=== PATIENT | female | born 1960 | race African-American/Black ===

== ENCOUNTER 2016-03-07 14:46 | Emergency (ER) | payer BC, OTHER ==
[~2016-03-07] VITALS: Ht 162.6 cm; Wt 96.9 kg
--- NOTE | ~2016-03-07 | EKG ---
[address] [address] ELECTROCARDIOGRAM REPORT Name: JENNY BURNETTE [id number] Admission: 03/07/16 Attend Phys: Discharge: Date of : 62 Report #: [id number] THIS REPORT FOR: //name// [facility] ED Test Date: 2016-03-07 Test Time: 15:09:38 Pat Name: JENNY BURNETTE Department: Room: Gender: F Low Pressure Boiler Tender: MZOOK : 1960 Requested By: Singh Parham Order Number: [id number] MD: Derek Carmona Measurements Intervals [place] Rate: 81 P: 33 IN: 149 QRS: 34 QRSD: 80 T: 26 QT: 402 QTc: 467 Interpretive Statements Sinus rhythm Compared to ECG 12/29/2015 13:10:01 T-wave abnormality no longer present Electronically Signed On 03-07-2016 16:03:49 PLANT INSPECTOR by Derek Carmona [email or web address] <ELECTRONICALLY SIGNED> By: Derek Carmona MD 03/07/16 1603 1509 1509 Derek Carmona MD /SOFIE
[~2016-03-07 14:46] MED LIST: ACETAMINOPHEN325 M1 PO; APAP500 PO; ASPIR 8181 MG PO; B-12500 MCG PO; B12INJ IM; FISH OIL + D31 EACH PO; FLONASE 0.05%50 MCG NASAL; GLUCOSAMINE HC500 MG PO; GLUCOSAMINE1000 MG PO; HYDROCHLOROTHIA25 M2 PO; HYDROXYCHLOROQ200 M1 PO; LASIX 20 MG TAB20 MG PO; LEVOTHYROXIN0.112 M1 PO; LOSARTAN-HCTZ1 EACH PO; MAXZIDE-25 MG1 EACH PO; MOBIC15 MG PO; NAPROXEN DELAY500 M1 PO; NORVASC5 MG PO; OMEPRAZOLE40 MG PO; POTASSIUM20 PO; PREDNISONE 10 M10 MG PO; PREDNISONE 20 M20 MG PO; PREMARIN VAGI42.5 G1; PRILOSEC 20 MG20 MG PO; RANITIDINE HCL300 M1 PO; ROBAXIN500 MG PO; SERTRALINE HCL50 MG PO; SINGULAIR 10 MG10 MG PO; SYNTHROID112 MCG PO; SYSTANE BALANCE10 ML OP; TEMOVATE15 GM TP; TIZANIDINE HCL4 MG PO; TORADOL 10 MG T10 MG PO; TRAMADOL 50 MG50 MG PO; VENLAFAXIN37.5 MG/1 PO; VENLAFAXINE HCL75 MG PO
[2016-03-07] MEDS ORDERED: LEVOTHYROXIN0.125 M1 PO (15:45)
[2016-03-07] MEDS ORDERED: VITAMIN B-12 PO (15:49)
[2016-03-07] MEDS ORDERED: LASIX 20 MG TAB20 MG PO (15:52)
[2016-03-07] MEDS ORDERED: ARTIFICIAL TEAR15 M2 OP (15:55)
[2016-03-07] MEDS ORDERED: TYLENOL EXTRA500 MG PO (15:56)
[2016-03-07 16:08] LABS: ABSOLUTE NEUTROPHILS 2.3 thou/uL (1.4-8.2); BASOPHILS 1.5 % (0.0-2.0); EOSINOPHILS 1.9 % (0.0-3.0); HEMATOCRIT 38.5 % (37.0-47.0); HEMOGLOBIN 12.9 gm/dL (12.0-15.0); LYMPHOCYTES 43.2 % (24.0-44.0); MCH 31.3 pg (26.0-34.0); MCHC 33.5 % (28.0-37.0); MCV 93.3 fL (80.0-100.0); MONOCYTES 6.3 % (1.0-8.0); PLATELET COUNT 251 thou/uL (150-400); POLYS 47.1 % (36.0-66.0); RBC 4.13 mil/uL (4.20-5.00); WBC 4.8 thou/uL (4.0-11.0)
[2016-03-07 16:12] LABS: MANUAL DIFF NO
[2016-03-07 16:14] LABS: CALCIUM 9.2 mg/dL (8.5-10.1); CREATININE 0.9 mg/dL (0.6-1.3); POTASSIUM 3.6 mmol/L (3.5-5.1)
[2016-03-07 16:20] LABS: ALBUMIN 3.5 g/dL (3.4-5.0); TOTAL BILIRUBIN 0.2 mg/dL (<0.1-1.0)
[2016-03-07] MEDS ORDERED: PREDNISONE 20 M20 MG PO (16:58)
[2016-03-07] MEDS ORDERED: LASIX 40 MG TAB40 M2 PO (16:58)
[2016-03-07 17:38] LABS: URINE BILIRUBIN NEGATIVE (Negative); URINE BLOOD NEGATIVE (Negative); URINE COLOR YELLOW; URINE GLUCOSE-RANDOM* NEGATIVE (Negative); URINE KETONES NEGATIVE (Negative); URINE LEUKOCYTES-REFLEX 1+ (Negative); URINE PROTEIN (DIPSTICK) NEGATIVE (Negative); URINE UROBILINOGEN 0.2 E.U./dl (0.2-1.0)
[2016-03-07 17:55] LABS: CASTS None Seen /LPF (None Seen); SQUAMOUS >10 Many /LPF (0-3); URINE WBC-REFLEX 6-15 Few /HPF (0-5)
[2016-03-07 17:56] LABS: CRYSTALS None Seen /LPF (None Seen); URINE RBC 0-2 Rare /HPF (0-2)
== END 2016-03-07 17:00 | disposition home or self-care (01) ==
LOC: ER 14:46
PROVIDERS: Emergency Medicine
DX: M32.8 Other forms of systemic lupus erythematosus (principal); R60.0 Localized edema; E78.5 Hyperlipidemia, unspecified; I11.0 Hypertensive heart disease with heart failure; I50.30 Unspecified diastolic (congestive) heart failure; Z88.0 Allergy status to penicillin; Z90.710 Acquired absence of both cervix and uterus; Z98.890 Other specified postprocedural states; Z91.040 Latex allergy status; Z91.013 Allergy to seafood; Z87.891 Personal history of nicotine dependence

== ENCOUNTER 2016-03-17 11:47 | Emergency (ER) | payer BC, OTHER ==
[~2016-03-17] VITALS: Ht 162.6 cm; Wt 102.1 kg
--- NOTE | ~2016-03-17 | EKG ---
[address] [address] ELECTROCARDIOGRAM REPORT Name: JENNY BURNETTE [facility] [id number] Admission: 03/17/16 Attend Phys: Discharge: 03/17/16 Date of : 62 Report #: [id number] THIS REPORT FOR: //name// [facility] ED Test Date: 2016-03-17 Test Time: 12:21:21 Pat Name: JENNY BURNETTE Department: Room: Gender: F Marketing Director: MZOOK : 1960 Requested By: Sis Kelley Order Number: [id number] MD: Derek Carmona Measurements Intervals [place] Rate: 83 P: 65 HI: 150 QRS: 49 QRSD: 82 T: 7 QT: 376 QTc: 442 Interpretive Statements Sinus rhythm Compared to ECG 03/07/2016 15:09:38 No significant changes Electronically Signed On 03-17-2016 14:21:19 STOPPERER ASSEMBLER by Derek Carmona [email or web address] <ELECTRONICALLY SIGNED> By: Derek Carmona MD 03/17/16 1421 1221 1221 Derek Carmona MD /SOFIE
[~2016-03-17 11:47] MED LIST changes: +ARTIFICIAL TEAR15 M2 OP; +LASIX 40 MG TAB40 M2 PO; +LEVOTHYROXIN0.125 M1 PO; +TYLENOL EXTRA500 MG PO; +VITAMIN B-12 PO
[2016-03-17] MEDS ORDERED: ALLER-EASE180 MG PO (12:09)
[2016-03-17] MEDS ORDERED: AZELASTINE137 MCG/0. NS (12:11)
[2016-03-17 12:35] LABS: ABSOLUTE NEUTROPHILS 3.1 thou/uL (1.4-8.2); HEMATOCRIT 38.5 % (37.0-47.0); HEMOGLOBIN 12.7 gm/dL (12.0-15.0); LYMPHOCYTES 45.4 % (24.0-44.0); MCH 31.2 pg (26.0-34.0); MCHC 32.9 % (28.0-37.0); MCV 94.9 fL (80.0-100.0); MONOCYTES 9.3 % (1.0-8.0); PLATELET COUNT 333 thou/uL (150-400); POLYS 43.3 % (36.0-66.0); RBC 4.05 mil/uL (4.20-5.00); RDW 14.2 % (10.5-14.5); WBC 7.2 thou/uL (4.0-11.0)
[2016-03-17 12:36] LABS: MANUAL DIFF NO
[2016-03-17 12:37] LABS: CALCIUM 9.7 mg/dL (8.5-10.1); CREATININE 0.9 mg/dL (0.6-1.3); POTASSIUM 3.9 mmol/L (3.5-5.1)
== END 2016-03-17 13:50 | disposition home or self-care (01) ==
LOC: ER 11:47
PROVIDERS: Emergency Medicine
DX: R60.0 Localized edema (principal); R06.00 Dyspnea, unspecified; I10 Essential (primary) hypertension; E78.5 Hyperlipidemia, unspecified; I50.9 Heart failure, unspecified; L93.2 Other local lupus erythematosus; Z90.710 Acquired absence of both cervix and uterus; Z88.1 Allergy status to other antibiotic agents; Z91.040 Latex allergy status; Z91.013 Allergy to seafood; Z87.891 Personal history of nicotine dependence

== ENCOUNTER 2017-05-10 18:42 | Emergency (ER) | payer BC, OTHER ==
[~2017-05-10] VITALS: Ht 162.6 cm; Wt 93.9 kg
[~2017-05-10 18:42] MED LIST changes: +ALLER-EASE180 MG PO; -ARTIFICIAL TEAR15 M2 OP; +ARTIFICIAL TEAR15 M2 OPHTHALMIC; +AZELASTINE137 MCG/0. NS; +IMURAN 50MG TAB50 M1 PO; +SENNA8.6 MG PO; +SYNTHROID175 MCG PO; -SYSTANE BALANCE10 ML OP; +SYSTANE BALANCE10 ML OPHTHALMIC
[2017-05-10 20:27] LABS: URINE BILIRUBIN 1+ (Negative); URINE BLOOD NEGATIVE (Negative); URINE CLARITY CLEAR; URINE COLOR YELLOW; URINE GLUCOSE-RANDOM* NEGATIVE (Negative); URINE KETONES TRACE (Negative); URINE LEUKOCYTES TRACE (Negative); URINE NITRITE NEGATIVE (Negative); URINE PROTEIN (DIPSTICK) 2+ (Negative); URINE SPECIFIC GRAVITY >= 1.030 (1.005-1.035); URINE UROBILINOGEN 0.2 E.U./dl (0.2-1.0)
[2017-05-10 20:28] LABS: ICTOTEST (BILI CONFIRMATORY) Negative (Negative)
[2017-05-10 20:37] LABS: BACTERIA 1-9 Few /HPF (None Seen); CRYSTALS None Seen /LPF (None Seen); HYALINE CASTS 0-3 Few /LPF (None Seen); MUCUS >6 Heavy strn/LPF (None Seen); SQUAMOUS >10 Many /LPF (0-3); URINE RBC 0-2 Rare /HPF (0-2); URINE WBC 6-15 Few /HPF (0-5)
[2017-05-10] MEDS ORDERED: VITAMIN E400 UNIT PO (20:52)
[2017-05-10 20:53] LABS: ABSOLUTE NEUTROPHILS 2.3 thou/uL (1.4-8.2); BASOPHILS 0.6 % (0.0-2.0); EOSINOPHILS 3.1 % (0.0-3.0); HEMATOCRIT 41.8 % (37.0-47.0); HEMOGLOBIN 14.1 gm/dL (12.0-15.0); LYMPHOCYTES 39.7 % (24.0-44.0); MCH 31.8 pg (26.0-34.0); MCHC 33.9 g/dL (28.0-37.0); MCV 93.8 fL (80.0-100.0); MONOCYTES 8.6 % (1.0-8.0); PLATELET COUNT 288 thou/uL (150-400); RBC 4.45 mil/uL (4.20-5.00); RDW 13.4 % (10.5-14.5); WBC 4.8 thou/uL (4.0-11.0)
[2017-05-10] MEDS ORDERED: ONE DAILY FOR1 EAC3 PO (20:53)
[2017-05-10] MEDS ORDERED: PROBIOTIC DIGE1 EACH PO (20:53)
[2017-05-10 20:56] LABS: CALCIUM 9.8 mg/dL (8.5-10.1); POTASSIUM 3.3 mmol/L (3.5-5.1)
[2017-05-10 21:02] LABS: ALBUMIN 3.8 g/dL (3.4-5.0); TOTAL BILIRUBIN 0.2 mg/dL (<0.1-1.0); TOTAL PROTEIN 7.4 g/dL (6.4-8.2)
[2017-05-10] MEDS ORDERED: KEFLEX500 M1 PO (21:48)
[2017-05-10] MEDS ORDERED: ONDANSETRON HCL4 M2 PO (21:48)
[2017-05-10] MEDS ORDERED: MACROBID 100 M100 M1 PO (22:14)
[2017-05-10 23:10] VITALS: BP 105/64
[2017-11-07] MEDS ORDERED: MEDROL DOSPAK21 TA1 PO (12:40)
[2017-11-07] MEDS ORDERED: APAP650 PO (12:42)
[2017-12-27] MEDS ORDERED: MELOXICAM15 MG PO (11:22)
[2017-12-27] MEDS ORDERED: VENLAFAXINE HC150 M1 PO (11:25)
[2017-12-27] MEDS ORDERED: SENNA8.6 MG PO (11:25)
[2017-12-27] MEDS ORDERED: B12INJ IM (11:26)
[2017-12-27] MEDS ORDERED: SYNTHROID150 MCG PO (11:47)
== END 2017-05-10 23:12 | disposition home or self-care (01) ==
LOC: ER 18:42
PROVIDERS: Nurse Practitioner Family
DX: R11.2 Nausea with vomiting, unspecified (principal); N39.0 Urinary tract infection, site not specified; T47.4X5A Adverse effect of other laxatives, initial encounter; Y92.9 Unspecified place or not applicable; E78.5 Hyperlipidemia, unspecified; I11.0 Hypertensive heart disease with heart failure; I50.9 Heart failure, unspecified; Z88.1 Allergy status to other antibiotic agents; Z91.013 Allergy to seafood

== ENCOUNTER 2018-01-07 05:17 | Inpatient (IN) | payer OTHER ==
[2017-12-31 12:57] LABS: URINE BILIRUBIN NEGATIVE (Negative); URINE BLOOD NEGATIVE (Negative); URINE CLARITY CLEAR; URINE COLOR YELLOW; URINE GLUCOSE-RANDOM* NEGATIVE (Negative); URINE KETONES NEGATIVE (Negative); URINE LEUKOCYTES-REFLEX NEGATIVE (Negative); URINE NITRITE-REFLEX NEGATIVE (Negative); URINE PROTEIN (DIPSTICK) NEGATIVE (Negative); URINE UROBILINOGEN 0.2 E.U./dl (0.2-1.0)
[2017-12-31 13:05] LABS: HEMATOCRIT 39.9 % (37.0-47.0); HEMOGLOBIN 13.1 gm/dL (12.0-15.0); MCH 31.5 pg (26.0-34.0); MCHC 32.7 g/dL (28.0-37.0); MCV 96.5 fL (80.0-100.0); RBC 4.14 mil/uL (4.20-5.00); RDW 14.6 % (10.5-14.5)
[2017-12-31 13:16] LABS: ALBUMIN 3.7 g/dL (3.4-5.0); CALCIUM 9.6 mg/dL (8.5-10.1); CREATININE 1.1 mg/dL (0.6-1.0); POTASSIUM 3.9 mmol/L (3.5-5.1); PROTIME 10.5 Seconds (9.3-11.4); TOTAL BILIRUBIN 0.2 mg/dL (<0.1-1.0)
[~2018-01-07] VITALS: Ht 157.5 cm; Wt 97.5 kg
--- NOTE | ~2018-01-07 | O ---
[facility] [place] [address] OPERATIVE REPORT Name: JENNY BURNETTE Room #: 430-P [facility] IN M.R.#: [id number] Admission: 01/07/18 Attend Phys: Sd Rosen MD Discharge: 01/09/18 Date of : 62 Report #: [id number] THIS REPORT FOR: //name// CC: Erlin Rosen DATE OF SERVICE: 01/07/2018 PREOPERATIVE DIAGNOSIS: Right knee osteoarthritis with underlying lupus. POSTOPERATIVE DIAGNOSIS: Right knee osteoarthritis with underlying lupus. PROCEDURE: Right total knee arthroplasty using Navio robotic assistance. SURGEON: Sd Rosen MD MANAGER SUMMER: Regina Upton PA-C INDICATIONS FOR ASSISTANCE: Throughout the case, extensive retraction and manipulation of the knee was required. This was afforded to me by my assistant teacher. ANESTHESIA: LMA with an adductor canal block. IMPLANTS: [employer]hew size 5 Journey II BCS Oxinium femur, a size 4 tibia, a size 11 polyethylene and a size 32 patella. TOURNIQUET TIME: 66 minutes. ESTIMATED BLOOD LOSS: 25 mL. COMPLICATIONS: None. SPECIMENS: None. CONDITION UPON LEAVING THE OPERATING ROOM: Stable. INDICATION FOR PROCEDURE: The patient is a 57-year-old female with right knee osteoarthritis as well as lupus. She has failed conservative measures for her knee and after discussion with her, she elected for right total knee arthroplasty. DESCRIPTION OF PROCEDURE: Risks, benefits, alternatives, complications were discussed in detail with the patient including but not limited to risk of anesthesia, risk of damage to nerves, arteries and blood vessels, risk for infection and bleeding, risk for continued knee pain and need for reoperation. Informed consent was obtained from the patient. The right knee was [facility] [address] [place] [address] OPERATIVE REPORT Name: JENNY BURNETTE Celestina Room #: 430-P [facility] IN [facility].#: [id number] Admission: 01/07/18 Attend Phys: Sd Rosen MD Discharge: 01/09/18 Date of : 62 Report #: [id number] appropriately marked in the preoperative holding area. IV clindamycin was given for preoperative antibiotics. Adductor canal block was placed by Anesthesia. She was brought into the operating room and placed in the supine position on the operating room table. LMA anesthesia was induced without complication. Tourniquet was placed on the right thigh. Right lower extremity was prepped and draped in normal sterile fashion. Timeout was performed properly identifying the patient and procedure as well as the instrumentation and implants. All in the operating room were in agreement. Right lower extremity was exsanguinated, tourniquet was inflated. Tourniquet time was 66 minutes. Standard midline approach to the knee was made with a 10 blade through the skin. Dissection was taken down sharply to the fascia and deep flaps were developed medially and laterally. Fresh 10 blade was used to make a medial parapatellar arthrotomy and the knee was inspected. There was moderate to severe medial compartment osteoarthritis with mild lateral and patellofemoral involvement. ACL and PCL were removed sharply. Anterior horns of the menisci were removed sharply. Reference pins were then placed into the femur and the tibia and the knee was then digitally mapped using the Navio robotic assistance. Intraoperative plan was made and we sized a size 5 femur and a size 4 tibia after acceptance of an intraoperative plan and the distal femoral resection was made with the Navio bur. After this, the 5-in-1, size 5 cutting block was placed and the chamfer cuts were made on the femur. After this, the knee was hyperflexed and tibia was subluxed anteriorly. The remainder of the menisci removed with Bovie cautery. The tibial resection was then made using the Navio robotic assistance for placement of the tibial resection guide. After this, flexion and extension gaps were checked and found to have good balance in flexion and extension both medially and laterally. The tibia was sized, found to be a size 4. The size 4 tibial trial was pinned and punched. A size 5 femoral trial was placed and the box cut was made. This was then trialed with a size 10 polyethylene and then a size 11 polyethylene, which had better fit and balance both manually as well as digitally using the Navio. 5 mm was taken off the posterior surface of the patella and a size 32 patellar trial resurfacing button was placed. Knee was taken through range of motion, found to be stable, found to have good balance in flexion and extension as well as good patellar tracking. Trial components were removed. Bony ends were thoroughly irrigated with normal saline. A final size 4 tibia, a size 5 Journey II BCS Oxinium femur and a size 32 patella were cemented in place using standard cementation techniques. While the cement cured, a periarticular injection consisting of morphine, ropivacaine, epinephrine and Toradol was placed around the knee joint capsule. After the cement cured, the tourniquet was deflated. Hemostasis was obtained with Bovie cautery. Final size 11 polyethylene was placed. A gram of vancomycin was placed deep in the joint. The fascia was closed with 0 Vicryl, skin was closed with 2-0 Vicryl, 3-0 Monocryl. Dermabond and a TAMEKA dressing was applied. The [address] [address] OPERATIVE REPORT Name: JENNY BURNETTE Room #: 430-P [facility] .R.#: [id number] Admission: 01/07/18 Attend Phys: Sd Rosen MD Discharge: 01/09/18 Date of : 62 Report #: [id number] patient tolerated this procedure well and went to the recovery room under the care of Anesthesia postoperatively. <ELECTRONICALLY SIGNED> By: Sd Rosen MD 01/09/18 1559 1625 1752 Sd Rosen MD /nt
--- NOTE | ~2018-01-07 | EKG ---
[address] [address] ELECTROCARDIOGRAM REPORT Name: JENNY BURNETTE Room #: [facility]#: [id number] Admission: Attend Phys: Sd Rosen MD Discharge: Date of : 62 Report #: [id number] THIS REPORT FOR: //name// [facility] Test Date: 2017-12-31 Test Time: 12:52:52 Pat Name: JENNY BURNETTE Department: Room: Gender: F Assembler Plastic Boat: Celestina CAUSEY : 1960 Requested By: Sd Rosen Order Number: [id number] MD: Measurements Intervals [place] Rate: 72 P: 65 OK: 157 QRS: 55 QRSD: 90 T: 12 QT: 425 QTc: 466 Interpretive Statements Sinus rhythm Compared to ECG 03/17/2016 12:21:21 No significant changes [email or web address] By: [id number] 1252 Pam Orozco MD /EPI
[~2018-01-07 05:17] MED LIST changes: +APAP650 PO; +KEFLEX500 M1 PO; +MACROBID 100 M100 M1 PO; +MEDROL DOSPAK21 TA1 PO; +MELOXICAM15 MG PO; +ONDANSETRON HCL4 M2 PO; +ONE DAILY FOR1 EAC3 PO; +PROBIOTIC DIGE1 EACH PO; +SYNTHROID150 MCG PO; +VENLAFAXINE HC150 M1 PO; +VITAMIN E400 UNIT PO
[2018-01-07 14:00] VITALS: BP 135/81
[2018-01-07 17:28] VITALS: BP 114/61
[2018-01-07 18:03] VITALS: BP 118/71
[2018-01-07 19:29] VITALS: BP 114/59
[2018-01-08 03:59] LABS: HEMATOCRIT 34.6 % (37.0-47.0); HEMOGLOBIN 11.7 gm/dL (12.0-15.0); MCH 32.8 pg (26.0-34.0); MCHC 33.8 g/dL (28.0-37.0); MCV 97.2 fL (80.0-100.0); RBC 3.56 mil/uL (4.20-5.00); RDW 14.5 % (10.5-14.5); WBC 10.7 thou/uL (4.0-11.0)
[2018-01-08 04:56] VITALS: BP 108/34
[2018-01-08 07:27] VITALS: BP 99/55
[2018-01-08] MEDS ORDERED: NEURONTIN 300300 M1 PO (10:40)
[2018-01-08] MEDS ORDERED: TRI-BUFFERED A325 M1 PO (10:40)
[2018-01-08 16:18] VITALS: BP 98/52
[2018-01-08 20:00] VITALS: BP 87/53
[2018-01-08 21:30] VITALS: BP 108/58
[2018-01-09 05:28] LABS: HEMATOCRIT 30.1 % (37.0-47.0); HEMOGLOBIN 10.3 gm/dL (12.0-15.0); MCH 33.1 pg (26.0-34.0); MCHC 34.1 g/dL (28.0-37.0); RBC 3.11 mil/uL (4.20-5.00); WBC 7.7 thou/uL (4.0-11.0)
[2018-01-09 05:30] VITALS: BP 89/46
[2018-01-09 09:36] VITALS: BP 89/46
[2018-01-09 10:13] VITALS: BP 89/46
[2018-01-09 10:57] VITALS: BP 89/46
== END 2018-01-09 11:12 | disposition home or self-care (01) | DRG 470 ==
LOC: PRE 05:17 → TBA 14:15 → 4E 14:15 → ENTRNSPT 01-09 10:33 → EDTRNSPTSTS 01-09 10:34 → 4E 01-09 11:12
PROVIDERS: Orthopaedic Surgery
PROC: 0SRC069 Replacement of Right Knee Joint with Oxidized Zirconium on Polyethylene Synthetic Substitute, Cemented, Open Approach (ICD-10-PCS; principal; 2018-01-07)
DX: M17.11 Unilateral primary osteoarthritis, right knee (principal); M32.9 Systemic lupus erythematosus, unspecified; K21.9 Gastro-esophageal reflux disease without esophagitis; E05.00 Thyrotoxicosis with diffuse goiter without thyrotoxic crisis or storm; F32.9 Major depressive disorder, single episode, unspecified; F41.9 Anxiety disorder, unspecified; M06.9 Rheumatoid arthritis, unspecified; G47.30 Sleep apnea, unspecified; I10 Essential (primary) hypertension; I25.10 Atherosclerotic heart disease of native coronary artery without angina pectoris; G62.9 Polyneuropathy, unspecified; I25.2 Old myocardial infarction; Z87.891 Personal history of nicotine dependence; Z90.710 Acquired absence of both cervix and uterus; Z79.899 Other long term (current) drug therapy; Z85.79 Personal history of other malignant neoplasms of lymphoid, hematopoietic and related tissues; Z88.1 Allergy status to other antibiotic agents; Z91.040 Latex allergy status; Z88.0 Allergy status to penicillin; Z91.013 Allergy to seafood
CPT/HCPCS: 10783; 50010; 50101; 50415; 50954; 51130; 51225; 51771; 53000; 53078; 54118; 55372; 56527; 56528; 57095; 57103; 57109; 57110; 57113; 57127; 62110; 62900; 64042; 64043; 70005

== ENCOUNTER → 2018-03-15 | Outpatient (CLI) | payer OTHER ==
[~2018-03-15] VITALS: Ht 162.6 cm; Wt 98.9 kg
[~2018-03-15] MED LIST changes: +NEURONTIN 300300 M1 PO; +TRI-BUFFERED A325 M1 PO
--- NOTE | ~2018-03-15 | HPC ---
[facility] [address] [place] [address] PAIN MANAGEMENT CONSULTATION Name: JENNY BURNETTE Room #: REG MIGEL MckeonTeresoChristalTereso#: [id number] Admission: 03/15/18 Attend Phys: Ben Álvarez MD Discharge: Date of : 62 Report #: [id number] THIS REPORT FOR: //name// CC: Erlin Álvarez DATE OF SERVICE: 03/15/2018 PRIMARY CARE PHYSICIAN: Erlin Marie MD CHIEF COMPLAINT: Low back pain that goes down to the left buttock, leg and into the foot. HISTORY: The patient is a 57-year-old female who has been seen in the pain clinic. She returns today indicating that she continues to have some pain and discomfort involving her low back with pain that is radiating down into her left buttocks area and down into the left leg and foot. She notes that there is some numbness and tingling in this area. Pain radiates down from the back around the lateral portion of her side to the anterior portion of her ashley and down to the top of her foot involving the big toe and middle toes. Pain is worse when she is walking, standing, bending and certain other activities. There is numbness and tingling involved. Overall, she rates this pain and discomfort today as a 3/10. States that she has continued with her medications of meloxicam and then she does use prednisone type medication on occasion. She has not had back surgery. She continues to increase her activity level. As you may recall, she had a right knee arthroplasty. Continues to walk with a cane. Continues to try to increase the range of motion of her leg. Overall, she thinks that things are going reasonably well. She is not sure today whether or not she would like to proceed with an epidural steroid injection. ALLERGIES: PENICILLIN, LATEX, SEAFOOD. CURRENT MEDICATIONS: Bufferin aspirin, levothyroxine 150 mcg, vitamin B12 1000 mcg ____ intramuscular weekly, venlafaxine 150 mg, senna at bedtime, Meloxicam 15 mg at bedtime, Tylenol Extra Strength for Arthritis 650 mg 2 tablets q.8 hours p.r.n., multivitamin women, vitamin E 400 units, potassium 20 mEq b.i.d., Imuran 50 mg b.i.d., last dose was on 12/31/2017, artificial tears 15 mL 1 drop 4 times daily p.r.n., Lasix 20 mg, total of 40 mg daily, Plaquenil 200 mg, Prilosec 20 mg, ophthalmic eye drops, and propylene glycol. PAIN CLINIC ASSESSMENT/PQRS: 1. The patient is being treated for lupus. Has some complains of osteoarthritic changes. She has had a right knee arthroplasty. 2. Height 5 feet 4 inches, weight 218 pounds, BMI 37. 3. Vital Signs: Blood pressure 137/96, pulse 86, respiratory rate 16, room air saturation 99%. [place] [address] PAIN MANAGEMENT CONSULTATION Name: YOMAIRALAXMIJENNY L Room #: REG Josh Sánchez.#: [id number] Admission: 03/15/18 Attend Phys: Ben Álvarez MD Discharge: Date of : 62 Report #: [id number] 4. Pain intensity 05/12. 5. Fall risk. The patient has not fallen in the last 3 months. 6. Blood thinner. The patient is not on a blood thinning medication. 7. Hypertension. The patient is being treated for hypertension. 8. Opioids greater than 6 weeks. The patient has received opioid medications from one source. 9. Risk assessment tool, low for opioid use. 10. Functional assessment 58/70. 11. Recreational drug use. The patient denies use of recreational drugs. 12. Tobacco: The patient denies use of tobacco. 13. Alcohol: The patient denies use of alcoholic beverages. PHYSICAL EXAMINATION: GENERAL: The patient is a well-developed, well-nourished, somewhat obese, black female. She is alert and oriented x 3. Her is present. NECK: Without adenopathy or JVD. HEART: Regular rate. ABDOMEN: Nontender. Bowel sounds present. EXTREMITIES: Upper extremity muscle strength is judged to be 5/5 for the major muscle groups in the upper extremity. The patient has some pain and discomfort in the lower back. Complains of pain that radiates down into the left leg with numbness, weakness and discomfort with sensory changes in the L4-L5 dermatomal distribution. She has a well healing scar in the right knee. Does not feel particularly warm. Does not seem infected. She has increasing range of motion. The patient walks with use of a cane. IMPRESSION: 1. Right knee pain with osteoarthritis, status post right knee arthroplasty. 2. Umbilical hernia. 3. Thyroid disease. 4. Hypertension. 5. Hyperlipidemia. 6. Congestive heart failure. 7. Lupus. 8. Anxiety. 9. Arthritis. 10. Depression. 11. Achilles tendinitis, right. 12. Alopecia. 13. Sleep apnea. RECOMMENDATIONS: We discussed treatment options with the patient and her . At this juncture, the patient feels that things are going reasonably well. She may consider an epidural steroid injection in the future. Overall, things are going reasonably well. She continues to work hard rehabing her right knee. Feels that she may have some increased pain and discomfort as a result of [facility] [address] [place] [address] PAIN MANAGEMENT CONSULTATION Name: JENNY BURNETTE Celestina [facility] #[facility] [id number] Admission: 03/15/18 Attend Phys: Ben Álvarez MD Discharge: Date of : 62 Report #: [id number] using and putting more pressure on the left knee given that she has had a right knee surgery. She will call us if she has any concerns. She can return to the pain clinic at any time should she consider an epidural steroid injection necessary to help decrease the lumbar radiculopathy, which she is experiencing in the left leg. We would like to thank you for letting us participate in her care. We hope she continues to improve. By: [id number] Ben Álvarez MD /RADHA
[2018-03-15 12:45] VITALS: BP 137/96
--- NOTE | 2018-03-15 12:53 | NUR ---
Pain Clinic Assessment: 1. History of Osteoarthritis: Not Applicable History of Rheumatoid Arthritis: Not Applicable 2. Height: 5 ft. 4 in. 162.6 cm. Weight: 218.0 lb. oz. 98.884 kg. Patient's BMI: 37.4 3. Vital Signs: BP: 137/96 Pulse: 86 Resp: 16 Temp: 02 Sat: 99 ECG Mon: 4. Pain Intensity: 3 5. Fall Risk: Dizziness: N Needs help standing or walking: Y Fallen in the last 3 months: N Fall risk comments: 6. Patient on Blood Thinner: None 7. History of Hypertension: 8. Opioid Therapy greater than 6 weeks: N Opiate Contract Signed: 9. Risk Assessment Tool Provided: LOW 10. Functional Assessment Tool: 58/70 11. Recreational Drug Use: Never Drug Type: Tobacco Use: Former Smoker Tobacco Type: Amount or Packs/day: How Many Years: Alcohol Use: No Frequency: Quant:
== END ==
LOC: PAIN 06:54
DX: M17.11 Unilateral primary osteoarthritis, right knee (principal); M76.61 Achilles tendinitis, right leg; K42.9 Umbilical hernia without obstruction or gangrene; E07.9 Disorder of thyroid, unspecified; E78.5 Hyperlipidemia, unspecified; I11.0 Hypertensive heart disease with heart failure; I50.9 Heart failure, unspecified; F32.9 Major depressive disorder, single episode, unspecified; F41.9 Anxiety disorder, unspecified; G47.30 Sleep apnea, unspecified; L65.9 Nonscarring hair loss, unspecified; A18.4 Tuberculosis of skin and subcutaneous tissue

== ENCOUNTER 2018-08-17 18:25 | Emergency (ER) | payer OTHER ==
[~2018-08-17] VITALS: Ht 162.6 cm; Wt 100.7 kg
[2018-08-17 19:26] LABS: ABSOLUTE NEUTROPHILS 2.2 thou/uL (1.4-8.2); BASOPHILS 1.1 % (0.0-2.0); EOSINOPHILS 1.7 % (0.0-3.0); HEMATOCRIT 39.1 % (37.0-47.0); HEMOGLOBIN 13.3 gm/dL (12.0-15.0); LYMPHOCYTES 37.5 % (24.0-44.0); MCH 32.5 pg (26.0-34.0); MCV 95.6 fL (80.0-100.0); MONOCYTES 11.3 % (1.0-8.0); PLATELET COUNT 284 thou/uL (150-400); POLYS 48.4 % (36.0-66.0); RBC 4.09 mil/uL (4.20-5.00); RDW 13.5 % (10.5-14.5); WBC 4.5 thou/uL (4.0-11.0)
[2018-08-17 19:29] LABS: CALCIUM 9.6 mg/dL (8.5-10.1); POTASSIUM 3.6 mmol/L (3.5-5.1)
[2018-08-17 19:32] LABS: URINE BILIRUBIN NEGATIVE (Negative); URINE BLOOD TRACE (Negative); URINE CLARITY CLEAR; URINE COLOR YELLOW; URINE GLUCOSE-RANDOM* NEGATIVE (Negative); URINE KETONES NEGATIVE (Negative); URINE LEUKOCYTES-REFLEX NEGATIVE (Negative); URINE NITRITE-REFLEX NEGATIVE (Negative); URINE PROTEIN (DIPSTICK) NEGATIVE (Negative); URINE UROBILINOGEN 0.2 E.U./dl (0.2-1.0)
[2018-08-17 20:29] VITALS: BP 156/83
== END 2018-08-17 20:29 | disposition home or self-care (01) ==
LOC: ER 18:25
PROVIDERS: Emergency Medicine
DX: M79.10 Myalgia, unspecified site (principal); R61 Generalized hyperhidrosis; R50.9 Fever, unspecified; J02.9 Acute pharyngitis, unspecified; J34.89 Other specified disorders of nose and nasal sinuses; R53.83 Other fatigue; R10.9 Unspecified abdominal pain; R30.0 Dysuria; M06.9 Rheumatoid arthritis, unspecified; M32.9 Systemic lupus erythematosus, unspecified; E05.00 Thyrotoxicosis with diffuse goiter without thyrotoxic crisis or storm; E11.9 Type 2 diabetes mellitus without complications; I11.0 Hypertensive heart disease with heart failure; I50.9 Heart failure, unspecified; K21.9 Gastro-esophageal reflux disease without esophagitis; Z90.710 Acquired absence of both cervix and uterus; G47.30 Sleep apnea, unspecified; Z96.653 Presence of artificial knee joint, bilateral; Z87.891 Personal history of nicotine dependence; Z88.0 Allergy status to penicillin; Z88.1 Allergy status to other antibiotic agents; Z91.040 Latex allergy status; Z91.013 Allergy to seafood

== ENCOUNTER → 2018-11-08 | Outpatient (CLI) | payer OTHER ==
[~2018-11-08] VITALS: Ht 162.6 cm; Wt 99.0 kg
[2018-11-08 13:07] VITALS: BP 139/77
== END | disposition home or self-care (01) ==
LOC: PAIN 06:54
DX: M54.16 Radiculopathy, lumbar region (principal); G89.29 Other chronic pain; Z87.891 Personal history of nicotine dependence; Z91.040 Latex allergy status; Z88.0 Allergy status to penicillin; Z88.8 Allergy status to other drugs, medicaments and biological substances; Z79.899 Other long term (current) drug therapy; Z98.890 Other specified postprocedural states

== ENCOUNTER → 2020-03-12 | Outpatient (CLI) | payer OTHER ==
[~2020-03-12] VITALS: Ht 162.6 cm; Wt 98.3 kg
[~2020-03-12] MED LIST changes: +LOW DOSE ASPIRI81 M1 PO
[2020-03-12 09:57] VITALS: BP 128/79
--- NOTE | 2020-03-12 10:24 | NUR ---
Pain Clinic Assessment: 1. History of Osteoarthritis: Not Applicable History of Rheumatoid Arthritis: Not Applicable 2. Height: 5 ft. 4 in. 162.6 cm. Weight: 216.8 lb. oz. 98.340 kg. Patient's BMI: 37.2 3. Vital Signs: BP: 128/79 Pulse: 82 Resp: 16 Temp: 02 Sat: 100 ECG Mon: 4. Pain Intensity: 7 5. Fall Risk: Dizziness: N Needs help standing or walking: N Fallen in the last 3 months: N Fall risk comments: 6. Patient on Blood Thinner: None 7. History of Hypertension: Y 8. Opioid Therapy greater than 6 weeks: N Opiate Contract Signed: 9. Risk Assessment Tool Provided: LOW 10. Functional Assessment Tool: 58/70 11. Recreational Drug Use: Never Drug Type: Tobacco Use: Former Smoker Tobacco Type: Amount or Packs/day: How Many Years: Alcohol Use: No Frequency: Quant:
== END | disposition home or self-care (01) ==
LOC: PAIN 06:55
PROVIDERS: ATTEND Anesthesiology Pain Medicine
DX: M54.16 Radiculopathy, lumbar region (principal); G89.29 Other chronic pain; I11.0 Hypertensive heart disease with heart failure; I50.9 Heart failure, unspecified; E11.9 Type 2 diabetes mellitus without complications; M10.9 Gout, unspecified; D64.9 Anemia, unspecified; E05.00 Thyrotoxicosis with diffuse goiter without thyrotoxic crisis or storm; F32.9 Major depressive disorder, single episode, unspecified; F41.9 Anxiety disorder, unspecified; G47.30 Sleep apnea, unspecified; K21.9 Gastro-esophageal reflux disease without esophagitis; Z98.890 Other specified postprocedural states; Z79.899 Other long term (current) drug therapy; Z90.710 Acquired absence of both cervix and uterus; Z88.0 Allergy status to penicillin; Z91.040 Latex allergy status; Z87.891 Personal history of nicotine dependence

== ENCOUNTER 2021-03-24 16:13 | Emergency (ER) | payer OTHER ==
[~2021-03-24] VITALS: Ht 162.6 cm; Wt 90.7 kg
[~2021-03-24 16:13] MED LIST changes: +NEURONTIN300 MG PO
[2021-03-24 18:52] VITALS: BP 158/83
== END 2021-03-24 18:52 | disposition home or self-care (01) ==
LOC: ER 16:13
DX: M25.561 Pain in right knee (principal); K21.9 Gastro-esophageal reflux disease without esophagitis; F41.9 Anxiety disorder, unspecified; F32.9 Major depressive disorder, single episode, unspecified; M19.90 Unspecified osteoarthritis, unspecified site; Z98.890 Other specified postprocedural states; Z90.710 Acquired absence of both cervix and uterus; Z79.82 Long term (current) use of aspirin; Z79.891 Long term (current) use of opiate analgesic; Z79.899 Other long term (current) drug therapy; Z88.1 Allergy status to other antibiotic agents; Z88.0 Allergy status to penicillin; Z91.018 Allergy to other foods; Z91.040 Latex allergy status; Z87.891 Personal history of nicotine dependence